=== PATIENT | female | born 1970 | race African-American/Black ===

== ENCOUNTER → 2024-02-15 | Outpatient (CLI) | payer MEDICAID, SELFPAY ==
[2024-02-15 08:20] LABS: Misc Send Out* See Sep Rpt
[2024-02-15 08:53] LABS: Basophils # (Auto) 0.1 Thou/mm3 (0.0-0.2); Basophils % (Auto) 1 % (0-2.5); Eosinophils # (Auto) 0.2 Thou/mm3 (0.0-0.5); Eosinophils % (Auto) 2 % (0-10); Hematocrit 39.5 % (36.0-46.0); Hemoglobin 12.5 g/dL (12.0-16.0); Immature Granulocytes % (Auto) 0 % (0-0); Immature Granulocytes Auto 0.03 Thou/mm3 (0.00-0.00); Lymphocytes # (Auto) 3.2 Thou/mm3 (1.0-4.8); Lymphocytes % (Auto) 33 % (10-50); Mean Corpuscular HGB Conc 31.6 g/dl (31.0-37.0); Mean Corpuscular Hemoglobin 25.9 pg (25.0-35.0); Mean Corpuscular Volume 82 fL (80-100); Monocytes # (Auto) 0.5 Thou/mm3 (0.0-0.8); Monocytes % (Auto) 5 % (0-12); Neutrophils # (Auto) 5.8 Thou/mm3 (1.8-7.7); Neutrophils % (Auto) 59 % (37-80); Nucleated Red Blood Cell % 0 /100 WBC (0); Platelet Count 356 Thou/mm3 (140-440); RDW Standard Deviation 48.1 fL (36.4-46.3); Red Blood Count 4.83 Miln/mm3 (4.00-5.20); White Blood Count 9.8 Thou/mm3 (3.6-11.0)
[2024-02-15 09:34] LABS: Alanine Aminotransferase 25 U/L (10-49); Albumin, Serum 4.1 gm/dL (3.5-5.0); Albumin/Globulin Ratio 1.4 (1.2-2.2); Alkaline Phosphatase 70 U/L (46-116); Anion Gap 5 (7-16); Aspartate Amino Transferase 15 U/L (0-34); BUN/Creatinine Ratio 12 Ratio (12-20); Bilirubin,Total 0.2 mg/dL (0.3-1.2); Blood Urea Nitrogen 12 mg/dL (9-23); Calcium 9.2 mg/dL (8.3-10.6); Calcium (Corrected) 9.2 mg/dL (8.5-10.1); Carbon Dioxide 28.1 mMol/L (20.0-31.0); Chloride 108 mMol/L (98-107); Globulin 2.9 gm/dL (2.3-3.5); Glucose 116 mg/dL (74-106); Osmolality,Calculated 281 (275-295); Sodium 141 mMol/L (136-145); eGFR > 60 See Note
== END | disposition home or self-care (01) ==
LOC: SCTO 07:45
PROVIDERS: PCP Nurse Practitioner Primary Care; Referring Provider Nurse Practitioner Family; Visit Provider Nurse Practitioner Family
DX: D72.829 Elevated white blood cell count, unspecified (principal)
CPT/HCPCS: 36415; 80053; 81219; 81270; 81279; 81339; 85025

== ENCOUNTER 2024-03-16 08:00 | Outpatient (RCR) | payer MEDICAID, SELFPAY | END 2024-03-28 23:59 | disposition home or self-care (01) | LOC: SCTC 08:00 | PROVIDERS: PCP Nurse Practitioner Primary Care; Referring Provider Nurse Practitioner Primary Care; Visit Provider Nurse Practitioner Family | DX: Z09 Encounter for follow-up examination after completed treatment for conditions other than malignant neoplasm (principal); Z86.2 Personal history of diseases of the blood and blood-forming organs and certain disorders involving the immune mechanism; E66.9 Obesity, unspecified; Z68.43 Body mass index [BMI] 50.0-59.9, adult; F17.210 Nicotine dependence, cigarettes, uncomplicated; R91.8 Other nonspecific abnormal finding of lung field; E11.9 Type 2 diabetes mellitus without complications; G89.29 Other chronic pain; M54.9 Dorsalgia, unspecified | CPT/HCPCS: 99212; G0463 ==

== ENCOUNTER → 2024-05-30 | Outpatient (CLI) | payer MEDICAID, SELFPAY ==
[2024-05-29 12:10] LABS: HCG Qualitative,Urine Negative
--- NOTE | 2024-05-30 15:13 | XR_ITS ---
Examination: CT chest, without intravenous contrast. Sagittal and coronal 2-D reconstructions. Exam date and time: May 30, 2024 1624 hours Comparison November 04, 2023 INDICATIONS: CT chest November 04, 2023 multiple pulmonary nodules, the largest 6 mm in the right upper lobe CTDI:vol (mGy) 27.5 DLP: (mGycm) 1143 Technique: Multiple 3.0 mm axial sections of the chest to been obtained. Bone and lung density settings are obtained. Sagittal and coronal 2-D reconstructions have been obtained. Low dose protocols were performed. One or more of the following dose reduction techniques were used; automated exposure control, adjustment of the mA and/or KV according to patient size, use of iterative reconstruction technique. Findings: No thoracic aortic aneurysmal dilatation Pulmonary artery segments are not enlarged No paratracheal tracheobronchial or bronchopulmonary adenopathy Multiple stable bilateral pulmonary nodules No pneumonia or pulmonary edema No visualized liver or splenic lesion Intact pancreas IMPRESSION: Stable bilateral pulmonary nodules, no new pulmonary nodules
== END | disposition home or self-care (01) ==
PROVIDERS: Referring Provider Nurse Practitioner Family; Visit Provider Nurse Practitioner Family
DX: R91.8 Other nonspecific abnormal finding of lung field (principal); Z32.00 Encounter for pregnancy test, result unknown
CPT/HCPCS: 71250; 81025

== ENCOUNTER → 2024-06-13 | Outpatient (CLI) | payer MEDICAID, SELFPAY ==
[2024-06-13 14:09] LABS: Basophils # (Auto) 0.1 Thou/mm3 (0.0-0.2); Basophils % (Auto) 0 % (0-2.5); Eosinophils # (Auto) 0.2 Thou/mm3 (0.0-0.5); Eosinophils % (Auto) 1 % (0-10); Hematocrit 41.2 % (36.0-46.0); Hemoglobin 13.1 g/dL (12.0-16.0); Immature Granulocytes % (Auto) 0 % (0-0); Immature Granulocytes Auto 0.05 Thou/mm3 (0.00-0.00); Lymphocytes # (Auto) 3.6 Thou/mm3 (1.0-4.8); Lymphocytes % (Auto) 30 % (10-50); Mean Corpuscular HGB Conc 31.8 g/dl (31.0-37.0); Mean Corpuscular Hemoglobin 25.5 pg (25.0-35.0); Mean Corpuscular Volume 80 fL (80-100); Monocytes # (Auto) 0.8 Thou/mm3 (0.0-0.8); Monocytes % (Auto) 6 % (0-12); Neutrophils # (Auto) 7.6 Thou/mm3 (1.8-7.7); Neutrophils % (Auto) 62 % (37-80); Nucleated Red Blood Cell % 0 /100 WBC (0); Platelet Count 371 Thou/mm3 (140-440); RDW Standard Deviation 46.4 fL (36.4-46.3); Red Blood Count 5.13 Miln/mm3 (4.00-5.20); White Blood Count 12.2 Thou/mm3 (3.6-11.0)
[2024-06-13 14:39] LABS: Alanine Aminotransferase 18 U/L (10-49); Albumin, Serum 4.2 gm/dL (3.5-5.0); Albumin/Globulin Ratio 1.3 (1.2-2.2); Alkaline Phosphatase 70 U/L (46-116); Anion Gap 7 (7-16); Aspartate Amino Transferase < 8 U/L (0-34); BUN/Creatinine Ratio 11 Ratio (12-20); Bilirubin,Total 0.3 mg/dL (0.3-1.2); Blood Urea Nitrogen 11 mg/dL (9-23); Calcium 8.9 mg/dL (8.3-10.6); Calcium (Corrected) 8.9 mg/dL (8.5-10.1); Chloride 106 mMol/L (98-107); Globulin 3.2 gm/dL (2.3-3.5); Glucose 87 mg/dL (74-106); Osmolality,Calculated 277 (275-295); Sodium 140 mMol/L (136-145); Total Protein 7.4 gm/dL (5.7-8.2); eGFR > 60 See Note
== END | disposition home or self-care (01) ==
PROVIDERS: PCP Family Medicine; Referring Provider Nurse Practitioner Family; Visit Provider Nurse Practitioner Family
DX: D72.829 Elevated white blood cell count, unspecified (principal)
CPT/HCPCS: 36415; 80053; 85025

== ENCOUNTER 2024-06-14 13:26 | Outpatient (RCR) | payer MEDICAID, SELFPAY ==
--- NOTE | 2024-07-03 00:42 | CTCFLWUP_ITS ---
Patient: YULIANA MANCERA : 1970 Page 3 of 5 FOLLOW UP NOTE DATE OF SERVICE: 06/14/2024 NAME: YULIANA MANCERA ACCOUNT: [id number] : 1970 AGE: 53 INTERVAL HISTORY: Patient is in the clinic for follow-up visit. Patient is in today for mammogram results. Patient had left breast mammogram at [facility] on 03/14/2024, showed no mammographic evidence of malignancy, 1 year screening recommended. Imaging was ordered due to previous complain of small palpable lump to left breast. Patient reports left lump resolved, patient reports it turned out to be a boil that spontaneously ruptured and has healed. Patient has a history of boils throughout her body. Patient denies any palpable lumps to breast axilla and neck. Patient denies abdominal pain chest pain cough weight loss fever. ONCOLOGY HISTORY: Not applicable DIAGNOSIS: History of mild asymptomatic leukocytosis, resolved Pulmonary nodules HISTORY OF PRESENT ILLNESS: Labs from 02/15/2024 shows WBC 9.8, hemoglobin 12.5, MCV 82, ANC 5.8, platelets 356,000. Patient reports good energy and appetite. Patient denies fever, abdominal pain chest pain weight loss. HISTORY: Ms. Yuliana Sy is a 53-year-old [place] Citizen-speaking female. Patient was referred due to due to elevated white blood count cell. Labs from 07/12/2023: WBC 12.19. Patient has a history of diabetes obesity. Patient has a history of chronic back pain due to degenerative disc disease. 09/15/2021: WBC 11.8, hemoglobin 13.6, hematocrit 42.9, MCV 82, ANC 8.1, platelets 383,000 01/04/2023: WBC 13.20, hemoglobin 13.5, hematocrit 44.0, MCV 83.7, ANC 8.89, platelets 430,000 07/12/2023: WBC 12.19, hemoglobin 13.5, hematocrit 44.4, MCV 82.5, ANC 8.18, platelets 407, 000. 10/15/2023: WBC 11.9, hemoglobin 13.8, hematocrit 43.5, MCV 83, ANC 7.7, platelets 362,000. 10/20/2023: US abdomen 11/02/2023: WBC 11.2, hemoglobin 13.4, hematocrit 42.2, MCV 82, ANC 7.1, platelets 398,000 11/02/2023: BCR-ABL transcript I not detected 11/02/2023: 11/04/2023: CT chest without contrast Findings: No thoracic aortic aneurysm dilatation Pulmonary artery segments are not enlarged No paratracheal tracheobronchial or bronchopulmonary adenopathy 6 mm pulmonary nodule right upper lobe image 118 4 mm pulmonary nodule right upper lobe image 139 5 mm pulmonary nodule posterior left lung image 150 4 mm pulmonary nodule posterior left lung image 167 No pneumonia or pulmonary edema Fatty infiltration throughout the liver Kidneys partially visualized no hydronephrosis IMPRESSION: Multiple pulmonary nodules as above, with this study as baseline recommend 6 month follow-up chest without contrast 03/14/2024: Bilateral mammogram-no mammographic evidence of malignancy 1 year mammogram recommended. OTHER MEDICAL HISTORY/CONDITIONS: Diabetes Obesity Asthma Degenerative disc disease Denies FAMILY HISTORY: Maternal grandfather - leukemia - dx 50 SOCIAL HISTORY: Occupational History - Unemployed Education Level - Attended Vocational School, did not graduate Marital Status - Tobacco Use Note - Smokes 4-5 cigarettes/day x 25 yrs ETOH Use Note - Denies Drug Note - Smokes marijuana occ Abuse/Neglect Note - Denies Social History Note 2 - Lives with niece [employer] HISTORY: Menarche?-?Age:?13 Menopause:?2021 :?0 MEDICATIONS: 1. albuterol sulfate - 90 mcg/actuation As directed 2. Claritin - 10 mg 1 tab Daily 3. Flonase - 50 mcg/actuation As directed 4. magnesium oxide - 400 mg magnesium 1 Capsule Daily 5. Ozempic - 0.25 mg or 0.5 mg(2 mg/1.5 mL) 1 Weekly 6. Vitamin D - 50,000 unit 1 Capsule Weekly Medications Last Reconciled by Linda Gore MA on 06/14/2024 ALLERGIES: fish; fish REVIEW OF SYSTEMS: A complete 14-point review of systems was performed and is negative except as noted in interval history. PHYSICAL EXAMINATION: VITAL SIGNS: Temperature?98.6, B/P?138/80, Oxygen?Saturation?97% Weight?335?lbs PAIN: 0 - No pain GENERAL APPEARANCE: Appears well, in no apparent distress, appropriately interactive. HEENT: Normocephalic, no temporal wasting, normal conjunctiva, normal hearing, lips without lesions CARDIOVASCULAR: Not assessed. BREAST: No palpable lump to left breast PULMONARY: Normal respiratory effort, no respiratory distress or use of accessory muscles, speaking in full sentences, no tachypnea. EXTREMITIES: No cyanosis. SKIN: Normal skin appearance. NEUROLOGIC: Alert and oriented x4. PSHYCHIATRIC: Appropriate affect, mood normal, behavior normal, intact thought and speech. LABORATORY DATA: I have personally reviewed and interpreted each of the patient?s relevant lab tests, abnormal findings are below: Date 02/15/24 06/13/24 ??WHITE?BLOOD?COUNT?(Thou/mm3) 9.8 12.2?H ??RED?BLOOD?COUNT?(Miln/mm3) 4.83 5.13 ??HEMOGLOBIN?(gm/dl) 12.5 13.1 ??HEMATOCRIT?(%) 39.5 41.2 ??PLATELET?COUNT?(Thou/mm3) 356 371 ??NEUTROPHILS?%,?AUTO?(%) 59 62 ??LYMPH?%,?AUTO?(%) 33 30 ??NEUTROPHILS,?AUTO?(Thou/mm3) 5.8 7.6 ??GLUCOSE,RANDOM?(mg/dL) 116?H 87 ??BLOOD?UREA?NITROGEN?(mg/dL) 12 11 ??CREATININE?(mg/dL) 1.00 1.00 ??SODIUM?(mmol/L) 141 140 ??POTASSIUM?(mmol/L) 5.0 4.0 ??CHLORIDE?(mmol/L) 108?H 106 ??CrCl?(CandG)?(ml/min) 94.86 97.77 ??AST/SGOT?(Unit/L) 15 <?8 ??ALT/SGPT?(Unit/L) 25 18 ??ALKALINE?PHOSPHATASE?(Unit/L) 70 70 ??BILIRUBIN,?TOTAL?(mg/dL) 0.2?L 0.3 ??PROTEIN?TOTAL?(gm/dl) 7.0 7.4 ??ALBUMIN,?SERUM?(gm/dl) 4.1 4.2 ??GLOBULIN?(gm/dl) 2.9 3.2 ??ALBUMIN/GLOBULIN?RATIO 1.4 1.3 ??CALCIUM,?SERUM?(mg/dL) 9.2 8.9 ??CALCIUM?SERUM?(CORRECTED)?(mg/dL) 9.2 8.9 ASSESSMENT/PLAN: 1. Mild leukocytosis, asymptomatic, resolved. BCR-ABL transcript I and JAK2 not detected, 11/02/2023. Labs from 02/15/2024 show WBC 9.8, ANC 5.8, previously on 07/12/2023 WBC 12.9, ANC 8.18 History of obesity, 314 pounds. Smoker, 4-5 cigarettes daily for 25 years. Multiple pulmonary nodules as detailed above, with this study is baseline recommend 6-month follow-up chest CT without contrast, CT chest 11/04/2023. 05/30/2024 CT shows stable bilateral nodules 2. Palpable lump to left breast resolved, patient reports it was a boil that spontaneously ruptured and resolved. Patient has a history of boils throughout body. Denies family history of breast cancer. Mammogram done at [facility] on 03/14/2024 did not show any malignancy, repeat in 1 year. Mammogram ordered 3. History of diabetes, obesity, chronic back pain Continue following up with PCP and pain management ORDERS: Order # Description [id number] Return to PCP for routine care. Follow up with Oncologist upon referral of PCP RETURN TO CLINIC: As needed BILLING AND COMPLIANCE: I reviewed external records from providers outside my specialty as summarized above. I spent a total of 50 minutes on this patient?s care on the day of their visit excluding time spent related to any billed procedures. This time includes time spent with the patient as well as time spent documenting in the medical record, reviewing patients records and tests, obtaining history, placing orders, communicating with other healthcare professionals, counseling the patient, family or caregiver, and/or care coordination for the diagnoses above. Electronically Signed by: Franklyn Encarnacion MD T: 12:39 AM CC: Briana?Blake,? PCP: Sy Bagley Referring: Sy Bagley This document was completed utilizing speech recognition software. Grammatical errors, random word insertions, pronoun errors, and incomplete sentences are an occasional consequence of this system due to software limitations, ambient noise, and hardware issues. Any formal questions or concerns about the content, text or information contained within the body of this dictation should be directly addressed to the provider for clarification.
== END 2024-06-26 23:59 | disposition home or self-care (01) ==
LOC: SCTC 13:26
PROVIDERS: PCP Family Medicine; Referring Provider Family Medicine; Visit Provider Internal Medicine Hematology & Oncology
DX: Z09 Encounter for follow-up examination after completed treatment for conditions other than malignant neoplasm (principal); Z86.2 Personal history of diseases of the blood and blood-forming organs and certain disorders involving the immune mechanism; E66.9 Obesity, unspecified; Z68.43 Body mass index [BMI] 50.0-59.9, adult; F17.210 Nicotine dependence, cigarettes, uncomplicated; R91.8 Other nonspecific abnormal finding of lung field; E11.9 Type 2 diabetes mellitus without complications
CPT/HCPCS: 99212; G0463

== ENCOUNTER 2024-10-02 08:00 | Emergency (ER) | payer MEDICAID, SELFPAY ==
[2024-10-02 08:01] VITALS: BMI 49.4
[2024-10-02 08:32] VITALS: BP 147/81; PULSE 77; RESP 19; TEMP 36.8; O2SAT 97
--- NOTE | 2024-10-02 08:47 | PD.EDRME ---
Rapid Medical Screening Exam RME Arrival date/time: 10/02/24 08:00 Chief Complaint: Abdominal Pain Vital signs: Vital Signs Temperature 98.2 F 10/02/24 08:32 Pulse Rate 77 10/02/24 08:32 Respiratory Rate 19 10/02/24 08:32 Blood Pressure 147/81 H 10/02/24 08:32 Pulse Oximetry (%) 97 10/02/24 08:32 Oxygen Delivery Method Room Air 10/02/24 08:32 Pulse ox is 97% room air Vital signs reviewed by provider: Yes RME Narrative: 53-year-old female presents to the ED with a complaint of right flank pain that radiates from her back to her front x 1 day.
--- NOTE | 2024-10-02 08:49 | XR_ITS ---
Examination: CT abdomen and pelvis without contrast. Coronal 3-D reconstructions. Sagittal 2-D reconstructions. Date and time of exam:October 02, 2024 1409 hours INDICATIONS: Right-sided flank pain beginning last night with diarrhea CTDI: vol (mGy): 20.4 DLP: (mGycm): 1287 Technique: Axial images of the abdomen have been obtained, 3 mm slice thickness Intravenous contrast material has not been administered. Low dose protocols were performed. One or more of the following dose reduction techniques were used; automated exposure control, adjustment of the mA and/or KV according to patient size, use of iterative reconstruction technique. Findings: No focal liver or splenic lesion No gallstones No adrenal or pancreatic mass No renal or ureteral calculi, no hydronephrosis Normal appendix No bowel obstruction 20 mm fat-containing umbilical hernia Colonic diverticulosis, no diverticulitis Anteverted atrophic uterus No pelvic mass Prominent osteopenia Reactive bony endplate change L2-L3 Diffuse significant lumbar degenerative disc disease Moderate to advanced narrowing hip joints IMPRESSION: No renal or ureteral calculi, no hydronephrosis Normal appendix No bladder mass or bladder calculi
[2024-10-02 09:10] LABS: Basophils # (Auto) 0.0 Thou/mm3 (0.0-0.2); Basophils % (Auto) 0 % (0-2.5); Eosinophils # (Auto) 0.2 Thou/mm3 (0.0-0.5); Eosinophils % (Auto) 1 % (0-10); Hematocrit 42.0 % (36.0-46.0); Hemoglobin 13.7 g/dL (12.0-16.0); Immature Granulocytes Auto 0.04 Thou/mm3 (0.00-0.00); Lymphocytes # (Auto) 2.8 Thou/mm3 (1.0-4.8); Lymphocytes % (Auto) 23 % (10-50); Mean Corpuscular HGB Conc 32.6 g/dl (31.0-37.0); Mean Corpuscular Hemoglobin 26.1 pg (25.0-35.0); Mean Corpuscular Volume 80 fL (80-100); Monocytes # (Auto) 0.6 Thou/mm3 (0.0-0.8); Monocytes % (Auto) 5 % (0-12); Neutrophils # (Auto) 8.4 Thou/mm3 (1.8-7.7); Neutrophils % (Auto) 70 % (37-80); Nucleated Red Blood Cell # 0.00 Thou/mm3 (0.00-0.00); Nucleated Red Blood Cell % 0 /100 WBC (0); Platelet Count 334 Thou/mm3 (140-440); RDW Standard Deviation 45.2 fL (36.4-46.3); Red Blood Count 5.25 Miln/mm3 (4.00-5.20); White Blood Count 12.0 Thou/mm3 (3.6-11.0)
[2024-10-02 09:30] LABS: Alanine Aminotransferase 17 U/L (10-49); Albumin, Serum 4.4 gm/dL (3.5-5.0); Albumin/Globulin Ratio 1.3 (1.2-2.2); Alkaline Phosphatase 71 U/L (46-116); Anion Gap 8 (7-16); Aspartate Amino Transferase 15 U/L (0-34); BUN/Creatinine Ratio 12 Ratio (12-20); Bilirubin,Total 0.4 mg/dL (0.3-1.2); Blood Urea Nitrogen 11 mg/dL (9-23); Calcium 9.8 mg/dL (8.3-10.6); Calcium (Corrected) 9.8 mg/dL (8.5-10.1); Carbon Dioxide 25.6 mMol/L (20.0-31.0); Chloride 107 mMol/L (98-107); Creatinine (Component) 0.9 mg/dL (0.6-1.3); Estimated Creatinine Clearance 108.5 mL/min (>60); Globulin 3.4 gm/dL (2.3-3.5); Glucose 102 mg/dL (74-106); Lipase 38 U/L (12-53); Osmolality,Calculated 280 (275-295); Potassium 4.4 mMol/L (3.4-5.1); Sodium 141 mMol/L (136-145); Total Protein 7.8 gm/dL (5.7-8.2); eGFR > 60 See Note
[2024-10-02 09:35] LABS: Collection Type, Urine Clean Catch
[2024-10-02 09:44] LABS: Bilirubin,Urine Negative (Negative); Blood,Urine Negative (Negative); Clarity,Urine Clear (Clear/Hazy); Color,Urine Lt-Yellow (Lt Yel-Yel); Glucose, Urine Negative (Negative); Ketones,Urine Negative (Negative); Leukocyte Esterase,Urine Negative (Negative); Nitrite,Urine Negative (Negative); PH,Urine 5.5 (5.0-7.0); Protein,Urine Negative (Neg - Trace); RBC,Urine 1 /hpf (0-3); Specific Gravity,Urine 1.020 (1.001-1.035); Squamous Epithelial Cell,Urine 1 /hpf (0-5); Urobilinogen,Urine Negative mg/dL (0.0-1.0); WBC,Urine 2 /hpf (0-5)
[2024-10-02 10:51] VITALS: BP 145/75; PULSE 74; RESP 18; TEMP 36.8; O2SAT 95
[2024-10-02 13:44] LABS: HCG Qualitative,Urine Negative
[2024-10-02] MEDS: KETOROLAC INJ 60 MG/2 ML VIAL 30 MG IM (14:47)
[2024-10-02 15:41] VITALS: BP 131/87; PULSE 68; RESP 18; TEMP 36.8; O2SAT 97
--- NOTE | 2024-10-02 15:56 | PD.EDBACK ---
ED Back Injury Pain RME/HPI General Chief Complaint: Abdominal Pain Stated Complaint: RIGHT FLANK PAIN SINCE LAST NIGHT Time Seen by Provider: 10/02/24 15:41 Arrival date/time: 10/02/24 08:00 Limitations: no limitations RME / HPI RME / HPI Narrative: 53-year-old female is here today for atraumatic right-sided low back pain for 1 day. This radiates to her right abdomen. She has no rectal paresthesias. No changes in bowel movements or urination. No distal weakness or acute paresthesias. She denies any fevers or chills. She has no other acute complaints. Related Data Home Medications ?Medication ?Instructions ?Recorded ?Confirmed albuterol 90 mcg/actuation aerosol 2 mcg inhalation BID PRN shortness 05/21/20 05/21/20 inhaler of breath benzonatate 100 mg capsule 100 mg PO TID PRN Shortness Of 05/21/20 05/21/20 Breath Or Wheezing fluticasone propionate 44 2 puff inhalation BID 05/21/20 05/21/20 mcg/actuation HFA aerosol inhaler Previous Rx's ?Medication ?Instructions ?Recorded methocarbamol 750 mg tablet 750 mg PO TID #20 tabs 10/02/24 naproxen 500 mg tablet (Naprosyn) 500 mg PO BID #14 tabs 10/02/24 Allergies Allergy/AdvReac Type Severity Reaction Status Date / Time Fish Containing Products Allergy Severe Difficulty Verified 10/02/24 08:02 Breathing Review of Systems Review of Systems Systems Reviewed: All systems reviewed, normal except as documented ED Exam General Limitations: Present no limitations General appearance: Present alert and in no apparent distress Head Head exam: Present atraumatic Eye Eye exam: Present normal appearance, PERRL and EOMI ENT ENT exam: Present normal exam, normal oropharynx and mucous membranes moist Neck Neck exam: Present normal inspection, full ROM and trachea midline Chest Chest inspection: Present normal inspection and symmetric chest wall rise Respiratory Respiratory exam: Present normal lung sounds bilaterally Cardiovascular Cardiovascular exam: Present regular rate, normal rhythm and normal heart sounds Abdominal Exam Abdominal exam: Present soft and normal bowel sounds Extremities Exam Extremities exam: Present normal inspection and full ROM Back Exam Back exam: Present normal inspection and full ROM Neurological Exam Neurological exam: Present alert, oriented X3 and other (Distal strength is intact, gait is stable. Patient is able to walk on her heels and her toes.) Psychiatric Psychiatric exam: Present normal affect and normal mood Skin Skin exam: Present warm, dry, intact and normal color Course Quality Measures none Orders Category Date Time Status CT abdomen pelvis wo con Stat Exams 10/02/24 08:49 Completed CBC Stat Lab 10/02/24 09:03 Completed Comprehensive Metabolic Panel Stat Lab 10/02/24 09:03 Completed HCG Qualitative,Urine Stat Lab 10/02/24 09:10 Completed Lipase Stat Lab 10/02/24 09:03 Completed Urinalysis Stat Lab 10/02/24 09:10 Completed HYDROcodone/APAP 10/325 [[place] 10/325] Med 10/02/24 08:50 Discontinued 1 tab PO X1 ONE Ketorolac Inj [Toradol Inj] Med 10/02/24 13:58 Discontinued 30 mg IM X1 ONE Vital Signs Vital signs: Vital Signs Temperature 98.2 F 10/02/24 08:32 Pulse Rate 77 10/02/24 08:32 Respiratory Rate 19 10/02/24 08:32 Blood Pressure 147/81 H 10/02/24 08:32 Pulse Oximetry (%) 97 10/02/24 08:32 Oxygen Delivery Method Room Air 10/02/24 08:32 Back Pain / Injury MDM Narrative MDM Narrative:: 53-year-old female is here today for atraumatic right-sided low back pain for 1 day. This radiates to her right abdomen. She has no rectal paresthesias. No changes in bowel movements or urination. No distal weakness or acute paresthesias. She denies any fevers or chills. She has no other acute complaints. On exam patient is nontoxic-appearing in no visible signs distress. Vital signs are stable. She has no CVA tenderness. She has no midline tenderness. Strength distally is intact. Her gait is stable. Workup reveals no significant leukocytosis or anemia. She has no metabolic derangement. Urinalysis is unremarkable. CT of the abdomen pelvis was obtained which revealed no acute intra-abdominal or pelvic abnormalities. Patient reported symptomatic improvement after therapies here. She will be discharged with a prescription of naproxen and Robaxin. She is asked to follow-up with her primary clinic for recheck. Return here as needed for any worsening or emergent changes. Patient data External records reviewed:: [facility] previous records and None Clinical information provided by:: patient Social determinants that could affect healthcare access:: none Patient has the following chronic illnesses:: Diabetes How is presenting disease/condition affected by chronic disease/condition?: uneffected by Evaluation data The following diagnostics were reviewed and interpreted by me:: lab results (No leukocytosis, metabolic derangement, or UTI) and radiology exam(s) (CT reveals no acute intra-abdominal or pelvic abnormalities) Lab and/or radiology exams considered but not ordered:: n/a Interpretation Summary: n/a Medications / Prescriptions Medications or Prescriptions considered but not ordered:: n/a Medication administrations:: Medication Administration History Discontinued Medications Hydrocodone Bitart/Acetaminophen (Hydrocodone/[place] 10/325 Tab) 1 tab PO X1 ONE Stop: 10/02/24 08:51 Last Admin: 10/02/24 09:19 Dose: 1 tab Documented By: [facility] Ketorolac Tromethamine (Ketorolac Inj 60 Mg/2 Ml Vial) 30 mg IM X1 ONE Stop: 10/02/24 13:59 Last Admin: 10/02/24 14:47 Dose: 30 mg Documented By: BARRETT See above Consultations Consultation(s) initiated? (list below): No Diagnosis Most likely diagnosis given after review of the tests above:: Lumbago Admission Indicated Admission indicated?: not indicated Admission Request Was there a request for admission?: No Disposition Plan Disposition Plan: Discharge Discharge Attestation Discharge Attestation: The patient and all family members were given an opportunity to ask questions and understood the discharge instructions. Discharge instructions specifically effects, indications for sooner follow up or return to the emergency department, and the expected course of current diagnosis. Patient condition: Stable Discharge Plan Plan Patient Disposition: HOME (Self Care) Patient condition on transfer: Stable Prescriptions/Referrals Prescriptions/Med Rec: New naproxen [Naprosyn] 500 mg tablet 500 mg PO BID Qty: 14 0RF methocarbamol 750 mg tablet 750 mg PO TID Qty: 20 0RF No Action benzonatate 100 mg Capsule 100 mg PO TID PRN (Reason: Shortness Of Breath Or Wheezing) fluticasone propionate 44 mcg/actuation Hfa Aerosol Inhaler 2 puff INHALATION BID albuterol 90 mcg/actuation Aerosol 2 mcg INHALATION BID PRN (Reason: shortness of breath) Referrals: Briana Lozano FNP ([facility]) [Primary Care Provider] - In 1 week Problem List Clinical Impression: Lumbago Patient/Caregiver Discharge Instructions Education Materials: Self-Care for Low Back Pain Additional Instructions: - Use the provided medications as prescribed. - Contact your clinic to schedule follow-up appointment. - Return here as needed for any worsening or emergent changes. Print Language: Sammarinese Stand Alone Forms: Emily Award Info., Patient Portal Info Letter
[2024-10-02 16:13] VITALS: RESP 18; TEMP 36.8; O2SAT 97
== END 2024-10-02 16:13 | disposition home or self-care (01) ==
PROVIDERS: Physician Assistant; Emergency Provider Family Medicine; PCP Nurse Practitioner Primary Care
DX: M54.50 Low back pain, unspecified (principal)
CPT/HCPCS: 36415; 74176; 80053; 81001; 81025; 83690; 85025; 96372; 99284; J1885; A9270